=== PATIENT | female | born 1965 | race Caucasian/White ===

== ENCOUNTER → 2024-01-27 12:31 | Outpatient (REF) | payer BC, SELFPAY | LOC: CPAP 12:31 | PROVIDERS: ATTENDING PHYSICIAN Obstetrics & Gynecology Gynecology | DX: Z01.419 Encounter for gynecological examination (general) (routine) without abnormal findings (principal) | CPT/HCPCS: 87624; G0123 ==

== ENCOUNTER → 2024-06-05 06:33 | Outpatient (REF) | payer BC, SELFPAY ==
[2024-06-05 07:28] LABS: % Basophils 1.1 % (0-2); % Eosinophils 5.3 % (0-6); % Immature Granulocytes 0.3 % (0-0.5); % Neutrophils 47.3 % (42.2-75.2); Absolute Eosinophils 0.2 10^3/uL (0-0.7); Absolute Lymphocytes 1.4 10^3/uL (1.2-3.4); Absolute Monocytes 0.3 10^3/uL (0.1-0.6); Absolute Neutrophils 1.8 10^3/uL (1.4-6.5); Hematocrit 36.9 % (37.0-47.0); Hemoglobin 12.5 g/dL (12.0-16.0); Mean Corp Hgb Conc. 33.9 g/dL (33.0-37.0); Mean Corpuscular Hgb 30.3 pg (27.0-31.0); Mean Corpuscular Volume 89.3 fL (81.0-99.0); Mean Platelet Volume 9.4 fL (7.4-10.4); Nucleated Red Blood Cells % 0 %; Platelet Count 215 10^3/uL (130-400); Red Blood Cell Count 4.13 10^6/uL (4.20-5.40); Red Cell Dist. Width 12.4 % (11.5-14.5); White Blood Cell Count 3.8 10^3/uL (4.8-10.8)
[2024-06-05 08:15] LABS: ALT (SGPT) 18 U/L (0-35); AST (SGOT) 35 U/L (14-36); Albumin 4.1 g/dl (3.5-5.0); Alkaline Phosphatase 72 U/L (38-126); Blood Urea Nitrogen 13 mg/dl (7-17); Calcium 9.2 mg/dl (8.4-10.2); Carbon Dioxide 31 mmol/L (22-30); Chloride 100 mmol/L (98-107); Glucose 90 mg/dl (70-99); HDL Cholesterol 87 mg/dl; LDL Cholesterol, Calculated 110 mg/dl; Potassium 4.3 mmol/L (3.5-5.1); Sodium 137 mmol/L (135-145); Total Bilirubin 0.6 mg/dl (0.2-1.3); Total Cholesterol 210 mg/dl (50-199); Total Protein 6.6 g/dl (6.3-8.2); Triglyceride 67 mg/dl (10-149); Very Low Density Lipoprotein 13 mg/dl (0-30); eGFR > 60.00
[2024-06-05 08:25] LABS: TSH Reflex To Free T4 2.01 uIU/ml (0.47-4.68)
== END ==
LOC: REG 06:33
PROVIDERS: ATTENDING PHYSICIAN Internal Medicine
DX: Z00.00 Encounter for general adult medical examination without abnormal findings (principal)
CPT/HCPCS: 36415; 80053; 80061; 84443; 85025

== ENCOUNTER 2025-01-04 06:27 | Day surgery (SDC) | payer BC, SELFPAY | END 2025-01-04 10:09 | disposition home or self-care (01) | LOC: GI 06:27 | PROVIDERS: ATTENDING PHYSICIAN Internal Medicine | DX: Z12.11 Encounter for screening for malignant neoplasm of colon (principal); D12.3 Benign neoplasm of transverse colon; K64.9 Unspecified hemorrhoids; Z86.0101 Personal history of adenomatous and serrated colon polyps | CPT/HCPCS: 45385; 88305 ==

== ENCOUNTER 2025-04-08 10:36 | Emergency (ER) | payer BC, SELFPAY ==
--- NOTE | 2025-04-08 10:45 | ED.GENMED ---
History of Present Illness
General
Chief Complaint: Allergic Reaction
Source: patient
Exam Limitations: none
Time Seen by Provider: 04/08/25 10:44
Nursing documentation reviewed up to this point in time: agreed with
History of Present Illness
History of Present Illness:
59-year-old female presents the emergency department due to hives itching and feeling hot. 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 She denies any chest pain, shortness of breath or throat swelling. She
has had allergic reaction to shellfish in the past.
Past History
Past History
ED Past Medical History: None
ED Past Surgical History: None
Social History
Tobacco: Non-smoker
Alcohol: None
Drug: None
Living: with family
Employment: Employed
Review of Systems
Review of Systems
Allergies reviewed?: Yes
All Other Systems: Not applicable
Constitutional: Reports no symptoms
EENT: Reports no symptoms; Denies sore throat
Respiratory: Reports no symptoms; Denies trouble breathing
Cardiac: Reports no symptoms
ABD/GI: Reports no symptoms
: Reports no symptoms
Musculoskeletal: Reports no symptoms
Skin: Reports itching and rash
Neurological: Reports no symptoms
Endocrine: Reports no symptoms
Hematologic/Lymphatic: Reports no symptoms
Psychiatric: Reports no symptoms
Phy Exam
Physical Exam
Physical Exam:
Physical Exam
General: no apparent distress, not acutely ill
Neck: supple. no meningeal signs. normal posterior pharynx
Heart: s1/s2 regular rate and rhythm, no murmur. equal radial
pulses.
HEENT: Pupils equal round reactive to light, EOMI, no oral lesions
Lungs: no acute respiratory distress. clear bilaterally
Abdomen: normal bowel sounds. not tender. no CVAT
Neuro: alert and oriented. no focal neurological deficits cranial nerves II through XII intact
Skin: Diffuse urticaria
Psychiatric: well kept. interactive and cooperative
Extremities: no edema. no calf tenderness. negative homans. good distal pulses
Course
Orders/Labs/Results
Orders:
Orders
04/08/25 10:45
Cardiac Monitoring- Treatment ONCE
IV Insert/Care/Rem.- Treatment PRN
Dexamethasone Sod Phosphate [Decadron] 10 mg IV NOW STA
Diphenhydramine [Benadryl] 25 mg IV NOW STA
Famotidine [Pepcid] 20 mg IV NOW STA
Pulse Ox/cont/shift [RESP] Stat
Quantity: 1
04/08/25 10:50
Complete Blood Count/With Diff Urgent
04/08/25 10:50
04/08/25 11:10
Vital Signs
Initial and Last Documented VS:
Initial Vital Signs
Pulse Ox
98
04/08/25 10:38
Last Documented Vital Signs
Temp Pulse Resp BP Pulse Ox
97.6 F 65 16 105/69 97
04/08/25 11:15 04/08/25 13:00 04/08/25 13:00 04/08/25 13:00 04/08/25 13:00
MDM/Problems Addressed
Differential Diagnosis Includes:
Anaphylaxis, urticaria
MDM/Problems Addressed:
[id number] female with allergic reaction, unclear etiology. Improved after IV Decadron and Benadryl.
*Pulse Oximetry
SaO2: 98
Oxygen Mode of Delivery: Room air
Patient hypoxic: no
*Critical Care Note
Total Time (30-74mins, 75-104mins- exclusive of procedures): Not Applicable
Patient Management
Social determinants of health affecting care: Living situation and Strong social support
Escalation/DeEscalation of care consider admission/obs:
Admit not indicated
ED Attending Note
-
Portions of this chart may have been created with voice recognition software.� Occasional wrong word or��sound alike� substitutions may have occurred due to the inherent limitations of voice recognition software.
Discharge Plan
Departure
Patient Disposition: Home (Routine Discharge)
Date of Disposition: 04/08/25
Time of Disposition: 13:20
Patient with high blood pressure during this ER visit?: No
Condition: Good
Discharge Problem:
Urticaria
Instructions: Hives (DC)
Referrals:
Mabel Bowers DO [Family Provider, [facility]] - Call in 1-3 days for appt
Interventions
Interventions:
*Risk Screen - Suicide Last Done: 04/08/25 10:38
*General Assessment Last Done: 04/08/25 10:38
*Neglect/Abuse Screening Last Done: 04/08/25 10:38
*ED- Fall Risk Assessment Last Done: 04/08/25 13:28
*ED COVID-19 Vaccine History Last Done: 04/08/25 13:07
*Nursing Disposition Last Done: 04/08/25 13:27
ED- Cardiac Assessment Last Done: 04/08/25 12:32
ED- Pulmonary Assessment Last Done: 04/08/25 12:32
ED-Skin Assessment Last Done: 04/08/25 12:32
Discharge Date and Time
Discharge Date/Time: 04/08/25 13:28
Print Language: MAORI
[2025-04-08 10:48] VITALS: BP 147/89
[2025-04-08] MEDS: PEPCID 20 MG IV (10:53)
[2025-04-08] MEDS: DECADRON 10 MG IV (10:53)
[2025-04-08] MEDS: BENADRYL 25 MG IV (10:53)
[2025-04-08 11:03] LABS: Hematocrit 37.8 % (37.0-47.0); Hemoglobin 13.0 g/dL (12.0-16.0); Mean Corp Hgb Conc. 34.4 g/dL (33.0-37.0); Mean Corpuscular Volume 85.9 fL (81.0-99.0); Nucleated Red Blood Cells % 0 %; Platelet Count 231 10^3/uL (130-400); Red Cell Dist. Width 12.3 % (11.5-14.5)
[2025-04-08 12:00] VITALS: BP 114/85
[2025-04-08 13:00] VITALS: BP 105/69
== END 2025-04-08 13:28 | disposition home or self-care (01) ==
LOC: EMR 10:36
PROVIDERS: EMERGENCY PHYSICIAN Emergency Medicine; FAMILY PHYSICIAN Family Medicine
DX: L50.9 Urticaria, unspecified (principal)
CPT/HCPCS: 99282; 96374; 96375; 85025

== ENCOUNTER → 2025-06-22 06:42 | Outpatient (REF) | payer BC, SELFPAY ==
[2025-06-22 08:45] LABS: Hematocrit 37.2 % (37.0-47.0); Hemoglobin 12.4 g/dL (12.0-16.0); Mean Corp Hgb Conc. 33.3 g/dL (33.0-37.0); Mean Corpuscular Volume 87.3 fL (81.0-99.0); Nucleated Red Blood Cells % 0 %; Platelet Count 210 10^3/uL (130-400); Red Cell Dist. Width 12.7 % (11.5-14.5)
[2025-06-22 09:25] LABS: ALT (SGPT) 26 U/L (0-35); AST (SGOT) 34 U/L (14-36); Albumin 4.3 g/dl (3.5-5.0); Alkaline Phosphatase 64 U/L (38-126); Blood Urea Nitrogen 11 mg/dl (7-17); Calcium 9.2 mg/dl (8.4-10.2); Carbon Dioxide 31 mmol/L (22-30); Chloride 104 mmol/L (98-107); Glucose 96 mg/dl (70-99); HDL Cholesterol 80 mg/dl; LDL Cholesterol, Calculated 109 mg/dl; Potassium 4.3 mmol/L (3.5-5.1); Sodium 139 mmol/L (135-145); Total Protein 6.7 g/dl (6.3-8.2); Very Low Density Lipoprotein 11 mg/dl (0-30); eGFR > 60.00
== END ==
LOC: REG 06:42
PROVIDERS: ATTENDING PHYSICIAN Internal Medicine
DX: Z00.00 Encounter for general adult medical examination without abnormal findings (principal)
CPT/HCPCS: 36415; 80053; 80061; 84443; 85025